=== PATIENT | female | born 1950 | race Caucasian/White ===

== ENCOUNTER → 2016-04-06 | Outpatient (CLI) | payer OTHER ==
--- NOTE | 2016-04-06 18:45 | DX ---
DEXA Bone Mineral Densitometry Clinical Indications: Postmenopausal and age 51. Screening for osteoporosis. Comparison: None. Technique: Bone Mineral Densitometry (BMD) by Dual Energy X-Ray Absorptiometry (DEXA) was performed utilizing the Vidable scanner. The lumbar spine was evaluated in the AP projection. The bilat eral hips and forearm were evaluated in the AP projection. Vertebral fracture assessment was also pe rformed. AP Lumbar Spine: L1 and L2 vertebral bodies were evaluated. L3 and L4 excluded secondary to degenera tive change. BMD: 0.863 gm/cm2 T-score: -2.6 SD Z-score: -0.9 SD AP left Hip: Neck BMD: 0.745 gm/cm2 T-score: -2.1 SD Z-score: -0.6 SD AP right Hip: Neck BMD: 0.778 gm/cm2 T-score: -1.9 SD Z-score: -0.3 SD AP left Forearm, 03/20: BMD: 0.819 gm/cm2 T-score: -0.7 SD Z-score: 0.8 SD Vertebral Fracture Assessment: No significant fracture deformity. Conclusion: Considering the lowest measured site, the patient is osteoporotic. The ten year risk for any major osteoporotic fracture is 11.2% and for a hip fracture is 2.0%. Any bone loss in this patient is probably related to aging or estrogen deficiency. Consider excluding secondary metabolic causes of bone loss (reported to be present in as many as 30% of patients with normal Z scores). Laboratory evaluation might include hydroxy vitamin D3 level, TSH, PTH, calcium, 24-hour urine calcium, phosphorous, albumin, creatinine, alkaline phosphatase, serum e lectrophoresis (SPEP or UPEP), anti-tissue transglutaminase antibody levels (celiac disease) and CBC . If secondary causes are excluded, then consider initiating treatment with a bisphosphonate (such a s Fosamax, Actonel or Boniva). If the patient is unable to use an oral bisphosphonate, another agent such as IV bisphosphonates (Boniva or Reclast), teriparatide (Forteo), or a selective estrogen recept or modulator (Evista) might be considered. Supplementing an insufficient diet to achieve total intakes of 1500 mg calcium and 800 International Units of vitamin D daily should be considered. Osteoporosis prevention and treatment begins by modify ing risk factors. The patient should be encouraged to participate in a regular exercise program that includes weightbearing and muscle strengthening regimens, as is clinically appropriate. Recommend follow-up DEXA in one year to assess the efficacy of pharmacologic intervention and/or wenceslao ection of appropriate secondary cause.
== END ==
LOC: FIMAGING 11:16
PROVIDERS: ATTEND Family Medicine
DX: Z13.820 Encounter for screening for osteoporosis (principal); M81.0 Age-related osteoporosis without current pathological fracture

== ENCOUNTER → 2017-04-08 | Outpatient (CLI) | payer OTHER | LOC: FIMAGING 12:27 | PROVIDERS: ATTEND Family Medicine | DX: Z13.820 Encounter for screening for osteoporosis (principal); M85.89 Other specified disorders of bone density and structure, multiple sites ==

== ENCOUNTER 2017-07-20 13:36 | Emergency (ER) | payer OTHER ==
[2017-07-20] MEDS ORDERED: CETIRIZINE 10 MG TAB PO ONE (14:16)
[2017-07-20] MEDS ORDERED: FAMOTIDINE 20 MG TAB PO ONE (14:16)
[2017-07-20] MEDS ORDERED: DEXAMETHASONE 10 MG/ML VIAL PO ONE (14:16)
[2017-07-20] MEDS ORDERED: DEXAMETHASONE 4 MG TAB ONE (14:18)
--- NOTE | 2017-07-20 14:21 | EDPHY ---
General Time Seen by Provider: 07/20/17 14:03 Narrative: CHIEF COMPLAINT: Wasp sting HISTORY OF PRESENT ILLNESS: Patient presents with complaints of wasp sting to the left scapula. This happened at 1:15 p.m. Today while in her garden. She immediately administered epinephrine. She says her 1st dose was incomplete, but she used the 2nd that immediately after this. She has felt some localized irritation at the site. She has had some dry mouth. No difficulty breathing or swallowing. No chest pain or shortness of breath. No systemic rash. The injection site does itch. She has a history of previous sting from a wasp in [place] half years ago where she did have a more serious reaction. She has had formal allergy testing a confirms this and has a prescription for EpiPen. No other associated complaints or modifying factors. REVIEW OF SYSTEMS: Ten systems reviewed and are negative unless otherwise noted in the HPI PCP: Dr. Vick SPECIALISTS: corporate communications specialist PAST MEDICAL HISTORY: Uncomplicated medical history PAST SURGICAL HISTORY: Hysterectomy 2 years ago SOCIAL HISTORY: Never smoker. Lives and works here independently FAMILY HISTORY: Noncontributory EXAMINATION General Appearance: Alert, no distress. Well-developed. Well-nourished. Head: normocephalic, atraumatic Eyes: Pupils equal and round, no conjunctival pallor or injection ENT, Mouth: Mucous membranes moist. The uvula is midline. The airway is widely patent and without trismus. There is no swelling of the lips, tongue or posterior pharynx. Neck: Normal inspection, supple, non-tender. No crepitus Respiratory: Lungs are clear to auscultation. No retractions or distress Cardiovascular: Regular rate and rhythm Gastrointestinal: Abdomen is soft and nontender Back: non-tender, no bony abnormalities Neurological: A&O, nonfocal, normal gait Skin: Warm and dry, no rash. Localized erythema at the site of the reported wasp injection. No systemic urticaria or hives Extremities: Nontender, no pedal edema Psychiatric: Mood and affect normal DIFFERENTIAL DIAGNOSES: Including but not limited to wasp sting, anaphylaxis, localized allergic reaction MDM: 2:15 p.m. Acute localized allergic reaction to wasp sting at 1:15 p.m. Today. She did administer her own epinephrine. She exhibits no compromise of the airway. There is no swelling of face, lips or tongue. No systemic rash. She is feeling much better after the epinephrine she administered, and this was the 1st time she has ever done so. I have ordered oral medications for further medication. I will monitor her. 3:00 p.m. Patient re-evaluated. She is feeling well. She has no difficulty breathing or swelling. She has no erythema of the lips, face or tongue. I do feel she is stable for discharge home. I have refilled her epinephrine and prescribed 1 more dose of Decadron to be taking the morning. We discussed [id number]-igr-[id number] antihistamines as needed. We discussed strict ED precautions. We discussed monitoring over the next 6-8 hours for rebound allergic response. She is comfortable this plan and discharged home stable condition. SUPERVISION: This patient was independently evaluated without direct involvement of or examination by the attending physician. - History Smoking Status: Former smoker - Objective Vital Signs: Initial Vital Signs Heart Rate 90 07/20/17 13:45 Respiratory Rate 16 07/20/17 13:45 Blood Pressure 131/74 H 07/20/17 13:45 O2 Sat (%) 94 07/20/17 13:45 O2 Delivery Mode Room Air Allergies/Adverse Reactions: Penicillins Allergy (Intermediate, Verified 01/26/15 09:57) Rash bee venom protein (honey bee) Allergy (Verified 07/20/17 13:44) Home Medications: Medication Instructions Recorded Cyanocobalamin [Vitamin B12 (*)] 1,000 mcg PO DAILY 01/26/15 Herbals/Supplements -Info Only 1 ea PO DAILY 01/26/15 Dexamethasone [Decadron 4 MG (*)] 8 mg PO DAILY #2 tab 07/20/17 EPINEPHrine [Epipen 0.3 MG] 0.3 mg IM ONCE #2 syr 07/20/17 Epipen Kit 07/20/17 Medications Given: Discontinued Medications Cetirizine HCl (Zyrtec) 10 mg PO EDNOW ONE Stop: 07/20/17 14:17 Last Admin: 07/20/17 14:39 Dose: 10 mg Dexamethasone (Decadron Injection) 10 mg PO EDNOW ONE Stop: 07/20/17 14:17 Last Admin: 07/20/17 14:23 Dose: Not Given Dexamethasone (Decadron) 10 mg PO EDNOW ONE Stop: 07/20/17 14:24 Last Admin: 07/20/17 14:25 Dose: 10 mg Famotidine (Pepcid) 20 mg PO EDNOW ONE Stop: 07/20/17 14:17 Last Admin: 07/20/17 14:25 Dose: 20 mg Departure - Departure Disposition: Home, Routine, Self-Care Clinical Impression: Wasp sting Qualifiers: Encounter type: initial encounter Injury intent: accidental or unintentional Qualified Code(s): T63.461A - Toxic effect of venom of wasps, accidental ( unintentional), initial encounter Condition: Good Instructions: Epinephrine (By injection), Insect Bite or Sting (ED) Additional Instructions: 1. Decadron 8 mg by mouth x1 on Saturday morning as prescribed 2. Hqea-ahk-aniezmv antihistamine, Zyrtec 1 pill by mouth once daily for the next 3 days 3. Mjnk-sfu-kbiqmnu antihistamine, Benadryl 25-50 mg every 4-6 hours as needed for the next 3 days 4. Contact her primary care physician and electrical design technologist for further care 5. ED precautions for return of symptoms, swelling of the mouth lips or tongue, difficulty breathing or systemic rash Referrals: Xiao Vick MD [Primary Care Provider] - As per Instructions Prescriptions: Dexamethasone [Decadron 4 MG (*)] 8 mg PO DAILY #2 tab EPINEPHrine [Epipen 0.3 MG] 0.3 mg IM ONCE #2 syr
[2017-07-20] MEDS ORDERED: DEXAMETHASONE 4 MG TAB PO ONE (14:23)
[2017-07-20 15:17] VITALS: BP 112/81
== END 2017-07-20 15:18 | disposition home or self-care (01) ==
DX: T63.461A Toxic effect of venom of wasps, accidental (unintentional), initial encounter (principal); Z87.891 Personal history of nicotine dependence

== ENCOUNTER 2017-12-13 11:28 | Day surgery (SDC) | payer OTHER ==
[2017-12-13] MEDS ORDERED: FLUMAZENIL 0.5 MG/5 ML MDV IVP PRN (11:46)
[2017-12-13] MEDS ORDERED: MIDAZOLAM 2 MG/2 ML VIAL IVP PRN (11:46)
[2017-12-13] MEDS ORDERED: NALOXONE HCL 0.4 MG/ML INJ IVP PRN (11:46)
[2017-12-13] MEDS ORDERED: NS 1,000 ML IV ONE (11:46)
[2017-12-13] MEDS ORDERED: fentaNYL 100 MCG/2 ML INJ IVP PRN (11:46)
[2017-12-13] MEDS ORDERED: ceFAZolin 2 GM/DEXTROSE 100 ML IV ONE (11:46)
[2017-12-13] MEDS ORDERED: ONDANSETRON 4 MG/2 ML VIAL IVP ONE (11:46)
--- NOTE | 2017-12-13 13:20 | PDPROPOC ---
Sedation Plan of Care Sedation Plan of Care: vital signs stable, mental status noted, patient educated of risks, benefits, alternatives, patient can tolerate sedation ASA Classification: ASA 2 Planned drugs: fentanyl, midazolam Mallampati Score: Class 1 Mallampati Reference Image: Patient passed 3-3-2 rule?: Yes
--- NOTE | 2017-12-13 13:20 | PDGENHP ---
History & Physical Chief Complaint: SYMPTOMATIC RLE VARICOSE VEINS History of Present Illness: PAIN AND SWELLING. Pertinent Past, Social, Family History: HEMORRHOIDECTOMY, LAPAROSCOPY Relevant Physical Exam: ROPEY POSTERIOR CALF VARICOSE VEINS Cardiorespiratory Assessment: RRR, CTA
[2017-12-13] MEDS ORDERED: LIDO/EPI 1% **for epidural** 30 ML SDV ONE (13:25)
[2017-12-13] MEDS ORDERED: SODIUM TETRADECYL SULFATE 3% 2 ML VIAL IV ONE (13:25)
[2017-12-13] MEDS ORDERED: NALOXONE HCL 0.4 MG/ML INJ ONE (13:37)
[2017-12-13] MEDS ORDERED: MIDAZOLAM 2 MG/2 ML VIAL ONE (13:38)
[2017-12-13] MEDS ORDERED: fentaNYL 100 MCG/2 ML INJ ONE (13:38)
[2017-12-13] MEDS ORDERED: FLUMAZENIL 0.5 MG/5 ML MDV IVP ONE (13:38)
[2017-12-13] MEDS ORDERED: ONDANSETRON 4 MG/2 ML VIAL IVP PRN (15:19)
[2017-12-13] MEDS ORDERED: ONDANSETRON DISINTEGRATING 4 MG TAB PO PRN (15:19)
[2017-12-13] MEDS ORDERED: IBUPROFEN 200 MG TAB PO ONE ×2 (15:19→18:16)
[2017-12-13] MEDS ORDERED: HYDROCODONE/APAP 5/325 TAB PO PRN (15:19)
--- NOTE | 2017-12-13 15:22 | PDRADPN ---
Radiology Procedure Note Date of Procedure: 12/13/17 Radiologist: Shirin Lopez Anesthesia: IV Sedation Pre-op Diagnosis: RLE VARICOSE VEINS Post-op Diagnosis: SAME Indication: pain and swelling Procedure: laser, phlebectomy, sclerotherapy Finding(s): see report Inf/Abcess present in the surg proc area at time of surgery?: No
[2017-12-13] MEDS ORDERED: NS 1,000 ML IV SCH (15:30)
[2017-12-13 17:33] VITALS: BP 116/60
== END 2017-12-13 19:01 | disposition home or self-care (01) ==
LOC: FIMAGING 11:28
PROVIDERS: ATTEND Radiology Diagnostic Radiology
PROC: 3E033TZ Introduction of Destructive Agent into Peripheral Vein, Percutaneous Approach (ICD-10-PCS; principal; 2017-12-13 15:07)
PROC: B54BZZA Ultrasonography of Right Lower Extremity Veins, Guidance (ICD-10-PCS; principal; 2017-12-13 15:07)
PROC: 06BP3ZZ Excision of Right Saphenous Vein, Percutaneous Approach (ICD-10-PCS; principal; 2017-12-13 15:07)
PROC: 067 Lower Veins, Dilation (ICD-10-PCS; principal; 2017-12-13 15:07)
DX: I83.811 Varicose veins of right lower extremity with pain (principal); I83.891 Varicose veins of right lower extremity with other complications
CPT/HCPCS: J0690; J2250; J2310; J3010